=== PATIENT | female | born 1995 | race Caucasian/White ===

== ENCOUNTER 2017-02-05 02:51 | Emergency (ER) | payer MEDICAID | END 2017-02-05 03:20 | disposition home or self-care (01) | LOC: D.ER 02:51 | DX: H01.003 Unspecified blepharitis right eye, unspecified eyelid (principal) ==

== ENCOUNTER 2017-02-11 21:12 | Emergency (ER) | payer MEDICAID | END 2017-02-11 22:00 | disposition home or self-care (01) | LOC: D.ER 21:12 | DX: S90.511A Abrasion, right ankle, initial encounter (principal); W26.9XXA Contact with unspecified sharp object(s), initial encounter; Y93.89 Activity, other specified; Y92.89 Other specified places as the place of occurrence of the external cause; F17.200 Nicotine dependence, unspecified, uncomplicated ==

== ENCOUNTER 2017-06-08 09:49 | Emergency (ER) | payer MEDICAID ==
[2017-06-08 12:32] LABS: BASOPHILS 0.2 % (0-2); EOSINOPHILS 1.4 % (0-7); HEMATOCRIT 42.6 % (36.0-48.0); HEMOGLOBIN 14.9 g/dL (12-16); IMMATURE GRANULOCYTES 0.3 % (0-5); LYMPHOCYTES 29.2 % (15-50); MCH 31.8 pg (26.0-34.0); MCV 90.8 fL (80.0-100.0); MEAN PLATELET VOLUME 10.3 fL (7.4-10.4); MONOCYTES 10.2 % (2-11); NEUTROPHILS 58.7 % (40-80); PLATELET COUNT 247 10x3/uL (130-400); RBC 4.69 10x6/uL (4.00-5.40); RDW 12.6 % (11.5-14.5); WBC 10.7 10x3/uL (4.8-10.8)
[2017-06-08 12:51] LABS: APPEARANCE CLEAR (CLEAR); BILIRUBIN NEGATIVE (NEGATIVE); COLOR YELLOW (YELLOW); GLUCOSE NEGATIVE (NEGATIVE); KETONE NEGATIVE (NEGATIVE); NITRITE NEGATIVE (NEGATIVE); PROTEIN NEGATIVE (NEGATIVE); UROBILINOGEN NORMAL (NORMAL)
[2017-06-08 12:53] LABS: BACTERIA FEW /hpf (NONE SEEN); EPITHELIAL CELLS 0-5 /hpf (0-5); MUCUS >1+ /lpf (NONE SEEN); RED CELLS - URINE 0-5 /hpf (0-5); WHITE CELLS - URINE 0-5 /hpf (0-5)
== END 2017-06-08 13:50 | disposition home or self-care (01) ==
LOC: D.ER 09:49
PROVIDERS: Emergency Medicine
DX: J20.9 Acute bronchitis, unspecified (principal); J06.9 Acute upper respiratory infection, unspecified

== ENCOUNTER 2017-08-23 21:48 | Emergency (ER) | payer MEDICAID | END 2017-08-24 02:44 | disposition home or self-care (01) | LOC: D.ER 21:48 | DX: J45.901 Unspecified asthma with (acute) exacerbation (principal); J20.9 Acute bronchitis, unspecified ==

== ENCOUNTER → 2018-01-21 15:25 | Outpatient (CLI) | payer MEDICAID ==
[2018-01-21 17:08] LABS: APPEARANCE HAZY (CLEAR); BILIRUBIN NEGATIVE (NEGATIVE); COLOR YELLOW (YELLOW); GLUCOSE NEGATIVE (NEGATIVE); KETONE NEGATIVE (NEGATIVE); NITRITE NEGATIVE (NEGATIVE); PROTEIN NEGATIVE (NEGATIVE); UROBILINOGEN NORMAL (NORMAL)
[2018-01-21 17:09] LABS: BACTERIA MANY /hpf (NONE SEEN); EPITHELIAL CELLS 0-5 /hpf (0-5); RED CELLS - URINE 0-5 /hpf (0-5)
== END | disposition home or self-care (01) ==
LOC: D.LABREF 15:25 → D.LDO 15:25
PROVIDERS: Obstetrics & Gynecology
DX: O36.8190 Decreased fetal movements, unspecified trimester, not applicable or unspecified (principal); Z3A.00 Weeks of gestation of pregnancy not specified; R10.30 Lower abdominal pain, unspecified

== ENCOUNTER → 2018-01-26 18:50 | Outpatient (CLI) | payer MEDICAID ==
[2018-01-26 19:16] LABS: APPEARANCE CLEAR (CLEAR); BILIRUBIN NEGATIVE (NEGATIVE); COLOR YELLOW (YELLOW); GLUCOSE NEGATIVE (NEGATIVE); KETONE NEGATIVE (NEGATIVE); NITRITE NEGATIVE (NEGATIVE); PROTEIN NEGATIVE (NEGATIVE); SPECIFIC GRAVITY 1.005 (1.005-1.020); UROBILINOGEN NORMAL (NORMAL)
[2018-01-26 19:20] LABS: BACTERIA FEW /hpf (NONE SEEN); EPITHELIAL CELLS 0-5 /hpf (0-5)
[2018-01-29 10:23] LABS: CHLAMYDIA TRACHOMATIS, NAA Negative (Negative)
== END | disposition home or self-care (01) ==
LOC: D.LDO 18:50
PROVIDERS: Obstetrics & Gynecology
DX: O26.892 Other specified pregnancy related conditions, second trimester (principal); Z3A.22 22 weeks gestation of pregnancy

== ENCOUNTER → 2018-04-28 14:10 | Outpatient (CLI) | payer MEDICAID ==
[2018-04-28 15:10] LABS: APPEARANCE HAZY (CLEAR); BILIRUBIN NEGATIVE (NEGATIVE); COLOR YELLOW (YELLOW); GLUCOSE NEGATIVE (NEGATIVE); KETONE LARGE mg/dL (NEGATIVE); NITRITE NEGATIVE (NEGATIVE); PROTEIN TRACE mg/dL (NEGATIVE); UROBILINOGEN NORMAL (NORMAL)
[2018-04-28 15:12] LABS: BACTERIA MANY /hpf (NONE SEEN); EPITHELIAL CELLS 0-5 /hpf (0-5); RED CELLS - URINE 0-5 /hpf (0-5); WHITE CELLS - URINE 25-50 /hpf (0-5)
== END | disposition home or self-care (01) ==
LOC: D.LDO 14:10
PROVIDERS: Obstetrics & Gynecology
DX: O26.893 Other specified pregnancy related conditions, third trimester (principal); Z3A.34 34 weeks gestation of pregnancy

== ENCOUNTER 2018-05-05 19:22 | Emergency (ER) | payer MEDICAID ==
[~2018-05-05] VITALS: Ht 165.1 cm; Wt 78.6 kg
[2018-05-05 19:34] VITALS: Ht 165.1 cm; Wt 78.6 kg
[2018-05-05 20:21] LABS: APPEARANCE CLEAR (CLEAR); BILIRUBIN NEGATIVE (NEGATIVE); COLOR YELLOW (YELLOW); GLUCOSE 50 mg/dL (NEGATIVE); KETONE NEGATIVE (NEGATIVE); NITRITE NEGATIVE (NEGATIVE); PROTEIN NEGATIVE (NEGATIVE); UROBILINOGEN NORMAL (NORMAL)
[2018-05-05 20:22] LABS: BACTERIA MODERATE /hpf (NONE SEEN); EPITHELIAL CELLS 0-5 /hpf (0-5); RED CELLS - URINE 0-5 /hpf (0-5)
[2018-05-05 20:40] VITALS: BP 123/68
== END 2018-05-05 20:41 | disposition home or self-care (01) ==
LOC: D.ER 19:22
PROVIDERS: Family Medicine
DX: O26.893 Other specified pregnancy related conditions, third trimester (principal); Z3A.36 36 weeks gestation of pregnancy; S16.1XXA Strain of muscle, fascia and tendon at neck level, initial encounter; V43.62XA Car passenger injured in collision with other type car in traffic accident, initial encounter; Y93.89 Activity, other specified; Y92.410 Unspecified street and highway as the place of occurrence of the external cause; S50.02XA Contusion of left elbow, initial encounter; S80.12XA Contusion of left lower leg, initial encounter; S39.012A Strain of muscle, fascia and tendon of lower back, initial encounter; S29.012A Strain of muscle and tendon of back wall of thorax, initial encounter

== ENCOUNTER 2018-05-05 21:05 | Outpatient (CLI) | payer MEDICAID ==
[2018-05-05 19:34] VITALS: BMI 28.8
[2018-05-05 22:29] LABS: HEMATOCRIT 29.3 % (36.0-48.0); HEMOGLOBIN 9.7 g/dL (12-16); LYMPHOCYTES 23.1 % (15-50); MCH 29.1 pg (26.0-34.0); MCHC 33.1 g/dL (31.0-37.0); MEAN PLATELET VOLUME 10.2 fL (7.4-10.4); NEUTROPHILS 61.1 % (40-80); PLATELET COUNT 220 10x3/uL (130-400); RBC 3.33 10x6/uL (4.00-5.40); RDW 12.8 % (11.5-14.5); WBC 12.2 10x3/uL (4.8-10.8)
[2018-05-05 22:33] LABS: INR 0.98 (0.85-1.17); PROTIME 12.5 SECONDS (11.6-15.0)
== END 2018-05-06 01:04 | disposition home or self-care (01) ==
LOC: D.LDO 21:05
PROVIDERS: Obstetrics & Gynecology
DX: O26.893 Other specified pregnancy related conditions, third trimester (principal); Z3A.36 36 weeks gestation of pregnancy; S16.1XXA Strain of muscle, fascia and tendon at neck level, initial encounter; V43.62XA Car passenger injured in collision with other type car in traffic accident, initial encounter; Y93.89 Activity, other specified; Y92.410 Unspecified street and highway as the place of occurrence of the external cause; S50.02XA Contusion of left elbow, initial encounter; S80.12XA Contusion of left lower leg, initial encounter; S39.012A Strain of muscle, fascia and tendon of lower back, initial encounter; S29.012A Strain of muscle and tendon of back wall of thorax, initial encounter

== ENCOUNTER 2018-05-06 | Outpatient (CLI) | payer MEDICAID ==
[2018-05-05 19:34] VITALS: BMI 28.8
== END 2018-05-06 01:04 | disposition home or self-care (01) ==
LOC: D.LDO → D.LD → D.LDO 01:04
DX: O26.893 Other specified pregnancy related conditions, third trimester (principal); Z3A.36 36 weeks gestation of pregnancy

== ENCOUNTER → 2018-05-12 14:16 | Outpatient (CLI) | payer MEDICAID ==
[2018-05-05 19:34] VITALS: BMI 28.8
== END | disposition home or self-care (01) ==
LOC: D.LDO 14:16
DX: O26.893 Other specified pregnancy related conditions, third trimester (principal); Z3A.37 37 weeks gestation of pregnancy

== ENCOUNTER 2018-05-30 11:07 | Inpatient (IN) | payer MEDICAID ==
[~2018-05-30] VITALS: Ht 165.1 cm; Wt 85.7 kg
--- NOTE | ~2018-05-30 | OP ---
PATIENT NAME: JOSE ALBERTO CEBALLOS MEDICAL RECORD: [id number] [id number] ADMISSION DATE:05/30/18 SURGEON: RODRIGO BOYCE MD DATE OF OPERATION: 05/31/2018 PREOPERATIVE DIAGNOSES: 1. at 40 weeks gestation. 2. Nonreassuring tracing. POSTDELIVERY DIAGNOSES: 1. Mother delivered at 40 weeks. 2. Nonreassuring tracing. PROCEDURE: Primary low transverse section. SURGEON: Rodrigo Boyce MD ANESTHESIOLOGIST: Dr. Fine. ANESTHETIC: Continuous lumbar epidural. FINDINGS: Viable male infant, vertex presentation, Apgars 9 and 9, weight 8 pounds 13 ounces. Unremarkable uterus, tubes, and ovaries bilaterally. SPECIMEN REMOVED: Placenta. SPECIMEN DISPOSITION: Discarded. ESTIMATED BLOOD LOSS: 750 cc. FLUIDS: 1500 cc of lactated Ringer's. URINE OUTPUT: 450 cc of clear urine. COMPLICATIONS: None. DRAINS: Bain to gravity. INDICATIONS: The patient is a 22-year-old G1, para 0 at 40 weeks' gestation. The patient was induced and in active labor. The patient progresses to approximately 7 cm at which time repetitive late decelerations with diminished, beat to beat variability has occurred. The patient did have an episode earlier in the second stage, but that responded to conservative measures. With the recurrence of late decelerations with diminished beat to beat variability, the patient is consented for primary low transverse section. DESCRIPTION OF PROCEDURE: After informed consent was assured, the patient was taken to the operating room where anesthetic was obtained without difficulty. The patient is now prepped and draped in the usual sterile fashion. Low transverse incision was made on the abdomen and carried down to the underlying layer of the fascia. The fascia was opened and extended laterally. Rectus bellies were dissected free superiorly and inferiorly than in the midline. The peritoneum was entered and peritoneal opening extended. DeLee all-purpose retractor was inserted and a low transverse hysterotomy was performed. Infant was delivered on to the abdomen atraumatically. The cord was OPERATIVE REPORT [id number] JOSE ALBERTO CEBALLOS doubly clamped and cut. The infant passed to the attendant. The placenta delivered via Crede maneuver and the placenta passed off the field for cord gases and cord blood sample. Uterus was exteriorized, cleared of all clot and debris and closed in a running locked fashion. After this was completed, the posterior cul-de-sac irrigated. Uterus returned to the abdomen and a single [id number] stitch was placed on the inferior aspect of the left side of the incision for hemostasis. Then, the pelvis again is irrigated and irrigant removed. The rectus bellies were reapproximated in the midline and then fascia closed with looped PDS. After closing the fascia, subcutaneous tissues inspected. Bleeding vessels cauterized and the skin reapproximated with saba. Sterile dressing is applied. Sponge, lap, and needle counts correct times 2 at the close of this procedure. TRANSINT:[id number] Voice Confirmation ID: [id number] DOCUMENT ID: [id number] RODRIGO BOYCE MD at 1321 CC: [id number] DICTATION DATE: 05/31/181934 HEARING AID REPAIRER: 05/31/18 [id number] ADM IN [facility] [address] [place] [address]
[2018-05-30 11:49] LABS: HEMATOCRIT 30.9 % (36.0-48.0); HEMOGLOBIN 10.1 g/dL (12-16); MCH 29.2 pg (26.0-34.0); MCHC 32.7 g/dL (31.0-37.0); MCV 89.3 fL (80.0-100.0); MEAN PLATELET VOLUME 11.4 fL (7.4-10.4); RBC 3.46 10x6/uL (4.00-5.40); RDW 15.4 % (11.5-14.5); WBC 11.2 10x3/uL (4.8-10.8)
[2018-05-30 11:55] VITALS: BP 128/61; Ht 165.1 cm; Wt 85.7 kg
[2018-05-30 11:57] LABS: UDS - AMPHET NEGATIVE QUAL (NEGATIVE); UDS - BARB NEGATIVE QUAL (NEGATIVE); UDS - BENZO NEGATIVE QUAL (NEGATIVE); UDS - COCAINE NEGATIVE QUAL (NEGATIVE); UDS - OPIATE NEGATIVE QUAL (NEGATIVE); UDS - PCP NEGATIVE QUAL (NEGATIVE); UDS - THC NEGATIVE QUAL (NEGATIVE)
[2018-05-31] VITALS (13 sets, daily range): BP systolic 124–157; BP diastolic 70–90
[2018-05-31] MEDS ORDERED: VENTOLIN HFA18 GM INH (05:29)
[2018-05-31] MEDS ORDERED: FLOVENT HFA 410.6 GM INH (05:33)
[2018-05-31] MEDS ORDERED: PRENAVITE1 TAB PO (05:33)
[2018-05-31 06:13] LABS: RAPID PLASMA REAGIN Non Reactive (Non Reactive)
[2018-06-01] VITALS: BP 133/79
[2018-06-01 00:30] VITALS: BP 138/76
[2018-06-01 07:45] VITALS: BP 119/83
[2018-06-01 13:30] VITALS: BP 114/71
[2018-06-01 19:54] VITALS: BP 127/68
[2018-06-02 02:25] VITALS: BP 135/69
[2018-06-02 10:45] VITALS: BP 122/77
[2018-06-02] MEDS ORDERED: IBUPROFEN800 MG PO (13:32)
[2018-06-02] MEDS ORDERED: PERCOCET 5-3251 TAB PO (13:35)
== END 2018-06-02 17:00 | disposition home or self-care (01) | DRG 788 ==
LOC: D.LD 11:07
PROVIDERS: Obstetrics & Gynecology
PROC: 10907ZC Drainage of Amniotic Fluid, Therapeutic from Products of Conception, Via Natural or Artificial Opening (ICD-10-PCS; 2018-05-31)
PROC: 10D00Z1 Extraction of Products of Conception, Low, Open Approach (ICD-10-PCS; principal; 2018-05-31 18:50)
DX: O76 Abnormality in fetal heart rate and rhythm complicating labor and delivery (principal); Z3A.40 40 weeks gestation of pregnancy; Z37.0 Single live birth

== ENCOUNTER 2019-02-10 20:08 | Observation (INO) | payer MEDICAID ==
[~2019-02-10] VITALS: Ht 165.1 cm; Wt 59.1 kg
[~2019-02-10 20:08] MED LIST: FLOVENT HFA 410.6 GM INH; IBUPROFEN800 MG PO; PERCOCET 5-3251 TAB PO; PRENAVITE1 TAB PO; VENTOLIN HFA18 GM INH
[2019-02-10 21:13] LABS: BASOPHILS 0.1 % (0-2); EOSINOPHILS 0.5 % (0-7); HEMATOCRIT 38.8 % (36.0-48.0); HEMOGLOBIN 13.2 g/dL (12-16); IMMATURE GRANULOCYTES 0.3 % (0-5); LYMPHOCYTES 9.2 % (15-50); MCH 28.9 pg (26.0-34.0); MCV 85.1 fL (80.0-100.0); MEAN PLATELET VOLUME 10.2 fL (7.4-10.4); MONOCYTES 8.3 % (2-11); NEUTROPHILS 81.6 % (40-80); PLATELET COUNT 216 10x3/uL (130-400); RBC 4.56 10x6/uL (4.00-5.40); RDW 14.7 % (11.5-14.5); WBC 18.6 10x3/uL (4.8-10.8)
[2019-02-10 21:27] LABS: ANION GAP 14.2 mmol/L (8-16); BILIRUBIN - TOTAL 0.55 mg/dL (0.2-1.3); CALCIUM 8.9 mg/dL (8.5-10.1); CARBON DIOXIDE 26.7 mmol/L (21.0-32.0); POTASSIUM - SERUM 3.9 mmol/L (3.5-5.1); PROTEIN - SERUM 7.8 g/dL (6.4-8.2)
[2019-02-10 21:46] LABS: HCG URINE NEGATIVE (NEGATIVE)
[2019-02-10 21:53] LABS: APPEARANCE CLEAR (CLEAR); BILIRUBIN NEGATIVE (NEGATIVE); COLOR YELLOW (YELLOW); GLUCOSE NEGATIVE (NEGATIVE); KETONE NEGATIVE (NEGATIVE); NITRITE NEGATIVE (NEGATIVE); PROTEIN NEGATIVE (NEGATIVE); UROBILINOGEN NORMAL (NORMAL)
[2019-02-11 01:46] VITALS: BP 107/51; Ht 165.1 cm; Wt 59.1 kg
[2019-02-11 06:38] LABS: BASOPHILS 0.1 % (0-2); EOSINOPHILS 0.7 % (0-7); HEMATOCRIT 35.6 % (36.0-48.0); HEMOGLOBIN 11.9 g/dL (12-16); IMMATURE GRANULOCYTES 0.3 % (0-5); LYMPHOCYTES 10.9 % (15-50); MCH 28.3 pg (26.0-34.0); MCHC 33.4 g/dL (31.0-37.0); MCV 84.8 fL (80.0-100.0); MEAN PLATELET VOLUME 10.3 fL (7.4-10.4); MONOCYTES 12.9 % (2-11); NEUTROPHILS 75.1 % (40-80); PLATELET COUNT 185 10x3/uL (130-400); RDW 14.8 % (11.5-14.5); WBC 19.2 10x3/uL (4.8-10.8)
[2019-02-11 08:51] VITALS: BP 120/56
[2019-02-11 12:00] LABS: BASOPHILS 0.2 % (0-2); EOSINOPHILS 1.9 % (0-7); HEMATOCRIT 37.1 % (36.0-48.0); HEMOGLOBIN 12.3 g/dL (12-16); IMMATURE GRANULOCYTES 0.2 % (0-5); LYMPHOCYTES 12.8 % (15-50); MCH 28.5 pg (26.0-34.0); MCHC 33.2 g/dL (31.0-37.0); MCV 86.1 fL (80.0-100.0); MEAN PLATELET VOLUME 10.3 fL (7.4-10.4); MONOCYTES 12.7 % (2-11); NEUTROPHILS 72.2 % (40-80); PLATELET COUNT 165 10x3/uL (130-400); RBC 4.31 10x6/uL (4.00-5.40); RDW 14.8 % (11.5-14.5); WBC 16.2 10x3/uL (4.8-10.8)
[2019-02-11] MEDS ORDERED: DICLOXACILLIN500 MG PO (13:44)
== END 2019-02-11 14:27 | disposition home or self-care (01) ==
LOC: D.ER 20:08 → D.LD 23:27 → OBSVTIME 23:27 → D.LD 23:27
PROVIDERS: Emergency Medicine; ADMIT Obstetrics & Gynecology; ATTEND Obstetrics & Gynecology
DX: N61.0 Mastitis without abscess (principal); K21.9 Gastro-esophageal reflux disease without esophagitis; F17.200 Nicotine dependence, unspecified, uncomplicated; M41.9 Scoliosis, unspecified